=== PATIENT | female | born 1940 | race Caucasian/White ===

== ENCOUNTER 2017-05-10 18:51 | Inpatient (IN) ==
[2017-05-10 19:57] LABS: Basophils # 0.1 K/mcL (0.0-0.2); Basophils % 1.1 %; Eosinophils # 0.2 K/mcL (0.0-0.6); Hematocrit 35.4 % (35.3-44.9); Hemoglobin 11.4 g/dL (11.5-15.4); Immature Granulocytes % 0.5 % (0-4); Lymphocytes # 0.8 K/mcL (0.6-4.6); Lymphocytes % 9.7 %; Mean Corpuscular HGB Conc 32.2 g/dL (31.6-35.5); Mean Corpuscular Hemoglobin 28.9 pg (28.0-33.3); Mean Corpuscular Volume 89.6 fL (83.0-100.0); Monocytes # 0.8 K/mcL (0.0-1.3); Neutrophils # 6.5 K/mcL (1.6-8.9); Platelet Count 262 K/mcL (140-400); Red Blood Count 3.95 M/mcL (3.82-4.97); Red Cell Distribution Width 13.6 % (11.5-14.5); Segmented Neutrophils % 77.7 %
--- NOTE | 2017-05-10 19:57 | Emergency Department Note ---
Disposition Clinical Impression: Urinary tract infection Qualifiers: Urinary tract infection type: site unspecified Hematuria presence: with hematuria Qualified Code(s): N39.0 - Urinary tract infection, site not specified Disposition: Admitted As Inpatient Condition: Good Time of Disposition: 22:09 General Adult HPI - General Chief complaint: ED Urogenital-Female Stated complaint: UTI Time Seen by Provider: 05/10/17 19:05 Source: patient Limitations: no limitations Nursing Notes Reviewed: Yes Vital Signs Reviewed: Yes - History of Present Illness HPI Narrative: Patient is a 76-year-old female who presents to [facility] ED with a chief complaint of lower abdominal pain, urinary tract infection, and cough 2 days. Patient states that she has had frequent urinary tract infections in the past and was seen by her primary care physician on April 27. Patient had been placed on ciprofloxacin and then was called a few days later to tell her she needed to take a different antibiotic through the IV. Patient was on vacation in [place] at the time and could not do so until she came back. Patient recently came back today and states her symptoms have been worsening. She has had pain going into her lower back as well as some nausea without vomiting. Subjective fevers and chills. She has also had a cough and runny nose for the last 2 days. States she is feeling and chest tightness. Onset (ago): day(s) Location: chest, abdomen Radiation: non-radiation Pain Severity: moderate Pain Scale: 5 Quality: aching Improves with: nothing Worsens with: nothing Associated symptoms: Reports: chest pain, cough, shortness of breath, weakness Treatments Prior to Arrival: none - Related Data Home Medications Medication Instructions Recorded Confirmed Aspirin Enteric Coated [Aspirin EC] 81 mg PO DAILY 05/10/17 05/10/17 Diclofenac Sodium [Voltaren] 2 gm TP BID 05/10/17 05/10/17 Levothyroxine [Synthroid] 125 mcg PO 0630 05/10/17 05/10/17 Metoprolol Succinate 25 mg PO DAILY 05/10/17 05/10/17 Metoprolol Succinate 100 mg PO DAILY 05/10/17 05/10/17 Pimecrolimus [Elidel] 1 appl TP BID PRN 05/10/17 05/10/17 Trimethoprim 100 mg PO DAILY 05/10/17 05/10/17 Ursodiol 1,800 mg PO HS 05/10/17 05/10/17 Allergies Allergy/AdvReac Type Severity Reaction Status Date / Time azithromycin Allergy See Verified 05/10/17 20:01 [From Zithromax Z-Ray] Comments cefdinir Allergy See Verified 05/10/17 20:01 Comments metronidazole [From Flagyl] Allergy See Verified 05/10/17 20:01 Comments nitrofurantoin Allergy See Verified 05/10/17 20:01 [From Macrobid] Comments Penicillins Allergy See Verified 05/10/17 20:01 Comments sulfamethoxazole Allergy See Verified 05/10/17 20:01 [From Bactrim] Comments All systems ED: reviewed and negative except as stated. Past Medical History - Past Medical History Attestation: Yes The following information was validated with the patient. Source: patient Medical history: Reports: fibromyalgia, GERD, hypertension, renal disease, other Psychiatric history: Reports: no psych history - Social History Smoking Status: Never smoker Smokeless Tobacco Status: No Alcohol use: Reports: none Drug use: Reports: none Physical Exam - General Limitations: no limitations General appearance: alert - Head Head exam: atraumatic, normocephalic, normal inspection - Eye Eye exam: Present: normal appearance, EOMI - ENT ENT exam: normal exam, normal oropharynx, mucous membranes moist - Neck Neck exam: Present: normal inspection, full ROM, trachea midline - Chest Chest inspection: Present: normal inspection, symmetric chest wall rise - Respiratory Respiratory exam: Present: normal lung sounds bilaterally - Cardiovascular Cardiovascular exam: Present: normal rhythm, tachycardia - Abdominal Exam Abdominal exam: Present: soft, Non-Tender. Absent: tenderness, distention, guarding, rebound, rigidity - Extremities Exam Extremities exam: Present: normal inspection, full ROM. Absent: tenderness, pedal edema - Back Exam Back exam: Present: normal inspection, full ROM. Absent: tenderness - Neurological Exam Neurological exam: Present: alert - Psychiatric Psychiatric exam: Present: normal affect, normal mood - Skin Skin exam: Present: warm, dry, intact, normal color Course Course Narrative: Patient seen and examined. Recently diagnosed with urinary tract infection that is resistant to multiple medications as well as patient having multiple allergies. I discussed pharmacotherapy with the pharmacy. We will place her on IV gentamicin. Patient also been feeling more short of breath and chest tightness over the last 2 days. Denies any sick contacts. Since she has been on multiple recent long bus trips, will rule out PE. She is saturating about 94 % on room air. Abdominal labs as well as CTA of the chest, CT abd/ pelvis with IV contrast ordered. - Reevaluation(s) Reevaluation #1: CTA of the chest shows multiple swollen lymph nodes in the chest concerning for lymphoproliferative disease and less likely early lymphoma. No signs of PE or pneumonia. Patient's urine analysis does show a urinary tract infection. I discussed with hospitalist Dr. Torres who has accepted patient for admission. Time: 23:09 Vital Signs Temperature 98.8 F 05/10/17 18:54 Pulse Rate 114 05/10/17 18:54 Respiratory Rate 14 05/10/17 18:54 Blood Pressure 139/76 05/10/17 18:54 O2 Sat by Pulse Oximetry 95 05/10/17 18:54 Temperature 98.8 F 05/10/17 18:54 Pulse Rate 104 05/10/17 21:38 Respiratory Rate 18 05/10/17 22:46 Blood Pressure 122/68 05/10/17 22:46 O2 Sat by Pulse Oximetry 97 05/10/17 21:56 Oxygen Delivery Oxygen Delivery Nasal Cannula Medical Decision Making - Medical Records Medical records reviewed: Yes I reviewed the patient's medical records. - Lab Data Lab results reviewed: Yes I reviewed the patient's lab results. Result diagrams: 05/10/17 19:50 05/10/17 19:50 Lab Results 05/10/17 05/10/17 05/10/17 Range/Units 19:43 19:50 19:50 WBC 8.3 (4.3-11.1) K/mcL RBC 3.95 (3.82-4.97) M/mcL Hgb 11.4 L (11.5-15.4) g/dL Hct 35.4 (35.3-44.9) % MCV 89.6 (83.0-100.0) fL MCH 28.9 (28.0-33.3) pg MCHC 32.2 (31.6-35.5) g/dL RDW 13.6 (11.5-14.5) % Plt Count 262 (140-400) K/mcL MPV 9.0 L (9.4-12.4) fL Immature Gran % 0.5 (0-4) % Seg Neutrophils % 77.7 % Lymphocytes % 9.7 % Monocytes % 9.0 % Eosinophils % 2.0 % Basophils % 1.1 % Neutrophils # 6.5 (1.6-8.9) K/mcL Lymphocytes # 0.8 (0.6-4.6) K/mcL Monocytes # 0.8 (0.0-1.3) K/mcL Eosinophils # 0.2 (0.0-0.6) K/mcL Basophils # 0.1 (0.0-0.2) K/mcL Sodium 136 (136-145) mEq/L Potassium 3.8 (3.5-4.5) mEq/L Chloride 106 (98-109) mEq/L Carbon Dioxide 22 (19-29) mEq/L BUN 18 (7-20) mg/dL Creatinine 0.87 (0.57-1.11) mg/dL Est GFR ( Amer) > 60 (> 60) Est GFR (Non-Af Amer) > 60 (> 60) BUN/Creatinine Ratio 21 (6-26) Glucose 121 H (70-99) mg/dL Calculated Osmolality 285 (280-300) Lactic Acid (0.5-2.2) mmol/L Calcium 9.2 (8.6-10.8) mg/dL Troponin I (0-0.03) ng/mL B-Natriuretic Peptide (0-100) pg/mL Urine Color Yellow (Yellow) Urine Clarity Cloudy A (Clear) Urine pH 6.0 (5.0-8.0) pH Units Ur Specific [place] 1.018 (1.010-1.025) Urine Protein Negative (Neg-Trace) mg/dL Urine Glucose (UA) Normal (Normal) mg/dL Urine Ketones Negative (Negative) mg/dL Urine Blood Trace H (Negative) Urine Nitrite Positive A (Negative) Urine Bilirubin Negative (Negative) Urine Urobilinogen Normal (Normal) mg/dL Ur Leukocyte Esterase Small H (Negative) Urine Microscopic RBC 0-3 (0-3) per hpf Urine Microscopic WBC 5-15 H (0-3) per hpf Ur Squamous Epith Cells Moderate H (None-Few) per lpf Urine Bacteria Many H (None-Few) per hpf Hyaline Casts None Seen (None-Few) per lpf Ur Culture Indicated? YES A (NO) 05/10/17 05/10/1705/10/17 Range/Units 19:50 19:50 19:50 WBC (4.3-11.1) K/mcL RBC (3.82-4.97) M/mcL Hgb (11.5-15.4) g/dL Hct (35.3-44.9) % MCV (83.0-100.0) fL MCH (28.0-33.3) pg MCHC (31.6-35.5) g/dL RDW (11.5-14.5) % Plt Count (140-400) K/mcL MPV (9.4-12.4) fL Immature Gran % (0-4) % Seg Neutrophils % % Lymphocytes % % Monocytes % % Eosinophils % % Basophils % % Neutrophils # (1.6-8.9) K/mcL Lymphocytes # (0.6-4.6) K/mcL Monocytes # (0.0-1.3) K/mcL Eosinophils # (0.0-0.6) K/mcL Basophils # (0.0-0.2) K/mcL Sodium (136-145) mEq/L Potassium (3.5-4.5) mEq/L Chloride (98-109) mEq/L Carbon Dioxide (19-29) mEq/L BUN (7-20) mg/dL Creatinine (0.57-1.11) mg/dL Est GFR ( Amer) (> 60) Est GFR (Non-Af Amer) (> 60) BUN/Creatinine Ratio (6-26) Glucose (70-99) mg/dL Calculated Osmolality (280-300) Lactic Acid 0.9 (0.5-2.2) mmol/L Calcium (8.6-10.8) mg/dL Troponin I 0.00 (0-0.03) ng/mL B-Natriuretic Peptide 59 (0-100) pg/mL Urine Color (Yellow) Urine Clarity (Clear) Urine pH (5.0-8.0) pH Units Ur Specific [place] (1.010-1.025) Urine Protein (Neg-Trace) mg/dL Urine Glucose (UA) (Normal) mg/dL Urine Ketones (Negative) mg/dL Urine Blood (Negative) Urine Nitrite (Negative) Urine Bilirubin (Negative) Urine Urobilinogen (Normal) mg/dL Ur Leukocyte Esterase (Negative) Urine Microscopic RBC (0-3) per hpf Urine Microscopic WBC (0-3) per hpf Ur Squamous Epith Cells (None-Few) per lpf Urine Bacteria (None-Few) per hpf Hyaline Casts (None-Few) per lpf Ur Culture Indicated? (NO) - Radiology Data Radiology results reviewed: Yes I reviewed the patient's radiology results. Abdomen/Pelvis CT 05/10/17 19:27 IMPRESSION: No evidence of pulmonary embolism. Adenopathy with multiple mildly enlarged and multiple small lymph nodes, mediastinal, epicardial, epiphrenic and epigastric. Considerations include a lymphoproliferative disorder and less likely early lymphoma. Very subtle patchy ground-glass areas of opacity of uncertain etiology. Pneumonia is considered somewhat unlikely. Moderate colonic diverticulosis. Small hiatal hernia. RECOMMENDATIONS: Consider PET-CT scan depending on clinical circumstances. D/ / Carlos Alberto Elkins MD / Carlos Alberto Elkins MD Interpreting Provider: Carlos Alberto Elkins MD Chest CTA 05/10/17 19:27 IMPRESSION: No evidence of pulmonary embolism. Adenopathy with multiple mildly enlarged and multiple small lymph nodes, mediastinal, epicardial, epiphrenic and epigastric. Considerations include a lymphoproliferative disorder and less likely early lymphoma. Very subtle patchy ground-glass areas of opacity of uncertain etiology. Pneumonia is considered somewhat unlikely. Moderate colonic diverticulosis. Small hiatal hernia. RECOMMENDATIONS: Consider PET-CT scan depending on clinical circumstances. D/ / Carlos Alberto Elkins MD / Carlos Alberto Elkins MD Interpreting Provider: Carlos Alberto Elkins MD - EKG Data EKG #1 EKG attestation: Yes I reviewed and interpreted this EKG. EKG results narrative: EKG done at 1947 shows sinus tachycardia with a rate of [address] elevation. Minimal ST depression in leads V4 through V6.. Normal axis.
[2017-05-10 19:59] LABS: Bilirubin,Urine Negative (Negative); Blood,Urine Trace (Negative); Clarity,Urine Cloudy (Clear); Color,Urine Yellow (Yellow); Glucose,Urine (UA) Normal (Normal); Ketones,Urine Negative (Negative); Leukocyte Esterase,Urine Small (Negative); Nitrite,Urine Positive (Negative); Protein,Urine Negative (Neg-Trace); Specific Gravity,Urine 1.018 (1.010-1.025); Urobilinogen,Urine Normal (Normal)
[2017-05-10 20:02] LABS: Bacteria,Urine Many per hpf (None-Few); Hyaline Casts,Urine None Seen per lpf (None-Few); RBC,Urine 0-3 per hpf (0-3); Squamous Epithelial Cell,Urine Moderate per lpf (None-Few)
[2017-05-10 20:09] LABS: BUN/Creatinine Ratio 21 (6-26); Blood Urea Nitrogen 18 mg/dL (7-20); Calcium 9.2 mg/dL (8.6-10.8); Carbon Dioxide 22 mEq/L (19-29); Chloride 106 mEq/L (98-109); Glucose 121 mg/dL (70-99); Osmolality,Calculated 285 (280-300); Potassium 3.8 mEq/L (3.5-4.5); Sodium 136 mEq/L (136-145); eGFR For African Americans > 60 (> 60); eGFR For Non-African Americans > 60 (> 60)
[2017-05-10] MEDS ORDERED: Gentamicin 80 MG in 0.9 % Sodium Chloride 100 ML IVPB SCH (21:00)
[2017-05-10] MEDS ORDERED: Ipratropium/Albuterol Neb 3 ML IH ONE (21:05)
--- NOTE | 2017-05-10 21:16 | Emergency Department Note ---
START Narrative - START START: I examined this patient and my medical decision-making was reviewed with the Resident Physician. I agree with the documented findings, disposition and treatment plan as described except to the extent set forth below. 76 year old female with HX of UTIs and typically is allergic to most PO medications taht treat it was in [place] today and got a call from her doctor stating that she has a UTI and needs a IV ABX due to allergies to PO medications. PAtient also states that she has been experiencing increased shrotness of breath and cough as well and was most recently on a long bus ride from [place], although states that she has been able to move around and get of the bus every two hours. Maikel will be admitted to medicine with IV genatmicin and we have ruled out PE and other intraabdonimnla pathologies such as pyelo with ABCt/CTA chest.
[2017-05-10] MEDS: Gentamicin 100 MG in 0.9 % Sodium Chloride 100 ML IVPB SCH (21:46)
[2017-05-11] MEDS ORDERED: *HR* Promethazine 25 MG/ML VIAL IVP PRN (01:18)
[2017-05-11] MEDS ORDERED: Ondansetron 4 MG/2 ML VIAL IVP PRN (01:18)
[2017-05-11] MEDS ORDERED: MOM Conc 10 ML UD.LIQ PO PRN (01:18)
[2017-05-11] MEDS ORDERED: [UNRECOGNIZED DRUG - OTHER] TP PRN (01:21)
[2017-05-11] MEDS ORDERED: Ibuprofen 600 MG TABLET PO ONE (01:23)
--- NOTE | 2017-05-11 01:37 | Internal Med History&Physical ---
Date of Encounter: 05/11/17 Time of Encounter: 00:10 Assessment and Plan (1) Urinary tract infection Current visit: Yes Status: Acute Will admit the pt into Med Surg Reviewed her Urine cx results from 04/27/17 - Fluroquinolone resistant , ESBL Negative E. Coli She has severe allergies to PCN / Chephalosporins - gets severe hives / blisters , so unable to use PCN/Carbapenems/ Chephalosporin ER attending started her on Gentamycin ..which will continue for now Pharmacy consulted for dosing May need to do desensitization for PCN / Carabapenem therapy.. Will consult ID in AM Blood cx drawn in Er Qualifiers: Urinary tract infection type: site unspecified Hematuria presence: without hematuria Qualified Code(s): N39.0 - Urinary tract infection, site not specified (2) Acute bronchiolitis Current visit: Yes Status: Acute She does have purulent bronchitis -- mostly bacterial cont empirical abx Gentamycin cont supportive and symptomatic care Qualifiers: Qualified Code(s): J21.9 - Acute bronchiolitis, unspecified (3) Reactive airway disease Current visit: Yes Status: Acute started her on low dose IV steroids Duoneb Qualifiers: Qualified Code(s): J45.909 - Unspecified asthma, uncomplicated (4) Lymphadenopathy Current visit: Yes Status: Acute Reviewed CT of Abd and Chest results Not sure at this stage wether it is early lymphoma vs inflammatory reaction to infection will check ESR and CRP in AM started her on Steroids Will consult Heme Onc in AM (5) Hypothyroid Current visit: Yes Status: Chronic resumed home meds Qualifiers: Qualified Code(s): E03.9 - Hypothyroidism, unspecified (6) Hypertension, essential Current visit: Yes Status: Acute stable resumed home meds (7) Primary biliary cirrhosis Current visit: Yes Status: Chronic stable resumed home med (8) DVT prophylaxis Current visit: Yes Status: Acute on Lovenox SQ Internal Medicine - H&P: HPI Chief complaint: UTI Admitted From: Emergency Dept Plans for Post Hospital Care: Home History of present illness: Ms. Roberts is a 76 year old female with known PMH of HTN, HLD, Hypothyroidism , Primary Biliary cirrhosis , with recurrent UTI history pt was recently diagnosed with UTI on 04/27/17 which was growing E. Coli, and pt was placed on Ciprofloxacin. Apprently her E. Coli was fluroquinolone resistant and she is allergic to lot of abx. So her PCP called her to get admitted in the hospital for IV abx and further care. Pt went to [place] a couple of days ago, since then she has been having cough with yellowsih expectoration and mild ZAMORA / SOB. She denied any CP. No fever / chills. However she does c/o dysuria and Rt flank pain. She had further work up done in the ER, her CT of abd / pelvis showed mediastinal, precardial, and paraphrenic lymphadenopathy., no pyelonephritis. Past Med Surg Social Fam HX - Past Medical History Medical history: fibromyalgia, GERD, hypertension, renal disease, other Psychiatric history: no psych history - Past Surgical History Surgical History: cholecystectomy, hysterectomy - Social History Smoking Status: Never smoker Smokeless Tobacco Status: No Alcohol use: none Drug use: none - Family History Father Name: Lars Age: 51 Living Status: Hx Family Cancer: Yes Internal Medicine - H&P: Meds Aspirin Enteric Coated [Aspirin EC] 81 mg PO DAILY 05/10/17 [History] Diclofenac Sodium [Voltaren] 2 gm TP BID 05/10/17 [History] Levothyroxine [Synthroid] 125 mcg PO 0630 05/10/17 [History] Metoprolol Succinate 25 mg PO DAILY 05/10/17 [History] Metoprolol Succinate 100 mg PO DAILY 05/10/17 [History] Pimecrolimus [Elidel] 1 appl TP BID PRN 05/10/17 [History] Trimethoprim 100 mg PO DAILY 05/10/17 [History] Ursodiol 1,800 mg PO HS 05/10/17 [History] 3 Allergy/AdvReac Type Severity Reaction Status Date / Time azithromycin Allergy See Verified 05/10/17 20:01 [From Zithromax Z-Ray] Comments cefdinir Allergy See Verified 05/10/17 20:01 Comments metronidazole [From Flagyl] Allergy See Verified 05/10/17 20:01 Comments nitrofurantoin Allergy See Verified 05/10/17 20:01 [From Macrobid] Comments Penicillins Allergy See Verified 05/10/17 20:01 Comments sulfamethoxazole Allergy See Verified 05/10/17 20:01 [From Bactrim] Comments All Systems PM: A 10-system review of systems was performed and is negative for pertinent findings except as documented above in the HPI. Review of systems: All the systems are reviewed everything is benign except the systems and symptoms I mentioned in the history of present illness - Constitutional Vitals: Temp Pulse Resp BP Pulse Ox 99.3 F 106 14 145/81 95 05/11/17 01:22 05/11/17 01:22 05/11/17 01:22 05/11/17 01:22 05/11/17 01:22 General appearance: Present: A&O X 3, no acute distress, answers questions appropriately - Head Head exam: Present: atraumatic, normal inspection - Neck Neck exam general surgery: Present: supple - Respiratory Respiratory exam: Present: decreased breath sounds, wheezes (moderate). Absent : rales, respiratory distress, rhonchi - Cardiovascular Cardiovascular exam: Present: RRR, +S1, +S2. Absent: systolic murmur - GI/Abdominal GI/Abdominal exam: Present: normal bowel sounds, soft. Absent: rebound, rigid, tenderness - Extremities Exam Extremities exam: Absent: calf tenderness, pedal edema, tenderness - Neurological Exam Neurological exam: Present: alert, oriented X3 - Psychiatric Psychiatric exam: Present: normal affect, normal mood - Skin Skin exam: Absent: rash Internal Med - H&P Results - Labs CBC & Chem 7: 05/10/17 19:50 05/10/17 19:50
[2017-05-11] MEDS: Benzonatate 100 MG CAPSULE PO PRN ×2 (05:32→20:12)
[2017-05-11] MEDS: *HR* Enoxaparin 40 MG/0.4 ML SYRINGE SQ SCH (05:33)
[2017-05-11 05:52] LABS: Basophils # 0.1 K/mcL (0.0-0.2); Basophils % 1.2 %; Eosinophils # 0.1 K/mcL (0.0-0.6); Eosinophils % 1.4 %; Hematocrit 32.3 % (35.3-44.9); Hemoglobin 10.2 g/dL (11.5-15.4); Immature Granulocytes % 0.6 % (0-4); Lymphocytes # 0.8 K/mcL (0.6-4.6); Lymphocytes % 14.6 %; Mean Corpuscular HGB Conc 31.6 g/dL (31.6-35.5); Mean Corpuscular Hemoglobin 28.3 pg (28.0-33.3); Mean Corpuscular Volume 89.7 fL (83.0-100.0); Mean Platelet Volume 9.6 fL (9.4-12.4); Monocytes # 0.7 K/mcL (0.0-1.3); Monocytes % 14.1 %; Neutrophils # 3.5 K/mcL (1.6-8.9); Platelet Count 218 K/mcL (140-400); Red Cell Distribution Width 13.6 % (11.5-14.5); Segmented Neutrophils % 68.1 %
[2017-05-11 06:04] LABS: BUN/Creatinine Ratio 17 (6-26); Blood Urea Nitrogen 13 mg/dL (7-20); C-Reactive Protein 15 mg/L (Less than 5); Calcium 8.7 mg/dL (8.6-10.8); Carbon Dioxide 22 mEq/L (19-29); Chloride 106 mEq/L (98-109); Glucose 118 mg/dL (70-99); Osmolality,Calculated 285 (280-300); Potassium 3.4 mEq/L (3.5-4.5); Sodium 137 mEq/L (136-145); eGFR For African Americans > 60 (> 60); eGFR For Non-African Americans > 60 (> 60)
[2017-05-11] MEDS: Gentamicin 100 MG in 0.9 % Sodium Chloride 100 ML IVPB SCH (06:23)
[2017-05-11] MEDS: MethylPREDNISolone 40 MG/ML VIAL IVP SCH ×2 (07:17→08:52)
[2017-05-11] MEDS: Aspirin Enteric Coated 81 MG Tablet PO SCH (08:52)
[2017-05-11] MEDS: Metoprolol XL (24 HR) Succ 25 MG TAB.ER.24H PO SCH (08:52)
[2017-05-11] MEDS: Metoprolol XL (24 HR) Succ 50 MG TAB.ER.24H PO SCH (08:52)
[2017-05-11] MEDS ORDERED: (Diclofenac Sodium [Voltaren] 2 GM) TP SCH (09:00)
[2017-05-11] MEDS ORDERED: (Trimethoprim [Trimethoprim] 100 MG) PO SCH (09:00)
[2017-05-11] MEDS ORDERED: Aminoglycoside Consult 1 EACH MC ONE (09:11)
--- NOTE | 2017-05-11 10:04 | Event Note ---
<Lefty Ramirez - Last Filed: 05/11/17 15:54> Date of Encounter: 05/11/17 I independently saw and examined this patient on 05/11/2017, I have reviewed his chart as well. Diagnoses and management plan was discussed with the patient, and the resident physician. 76 F with PMH of Biliary Cirrhosis, HTN, Hypothyroidism, Recurrent UTIS She was admitted to the hospital for management of a prior E.coli UTI that was resistant to the oral medication she was on, but sensitive to penicillin/ carbapenems and cephalosporins. Patient endorsed prior hx of TEN to penicillin, but has taken po Keflex several times without any problems. She has received IV contrast for CTA and also is on gentamicin. She denies any complains at this time Physical exam: VSS, Obese, not in distress. Chest is CTAB, no added sounds, Abdomen is soft and not tender, no pedal edema Labs and Imaging reviewed: Abdomen/Pelvic lymphadenopathy, otherwise unremarkable A/P #Asymptomatic Recurrent E.Coli UTI. D/C gentamicin. Give cephalosporin, 1g Rocephin and monitor closely. Follow urine culture sent 05/10/17 #Adenopathy: Consult Heme/Onc Other chronic medical conditions stable, patients home meds can be resumed, rest of details as in the resident physicians documentation <Shannon Benz - Last Filed: 05/11/17 19:28> Date of Encounter: 05/11/17 Time of Encounter: 09:50 Patient is laying in bed comfortably. She reports that she still has some shortness of breath and cough with yellow sputum she denies to dysuria, bladder fullness, increasing urinary frequency, fever, chills she is not the complaints at this time Gen.: Vitals noted. No acute distress. AAOx3 HEENT: oropharynx clear, Normocephalic, atraumatic Neck: Supple. cervical adenopathy. Cardiac: RRR, no murmur, +S1/S2 Pulmonary: bilateral diffuse wheezes and rhonchi, equal chest expansion Abdomen: soft, nontender, Bowel sounds noted, no guarding MSK: ROM intact, no joint swelling noted Extremities: BLE edema, tender calf, no cyanosis or clubbing Neuro: A&Ox3, moves all extremities, Psych: Appropriate mood and behavior A/P Urinary tract infection Patient has a history of recurrent urinary tract infections it was resistant to the oral medication that she was on She has allergies to PCN / Chephalosporins. Patient reported history of TEN to penicillin, but is taking Keflex several times without problems. She denies dysuria, urinary frequency, bladder fullness, fever, chills -discontinued gentamicin -started Rocephin- will monitor closely -diphenhydramine as needed -urine culture pending Lymphadenopathy CTA chest showed adenopathy with multiple mildly enlarged and multiple small lymph nodes. Considerations lymphoproliferative disorder and less likely early lymphoma. ESR 55, CRP 15 -Heme/onc consulted Acute bronchiolitis patient admits to cough with yellow sputum -Duonebs prn -continue supportive care primary biliary cirrhosis -stable -continue her medications Hypertension stable -continue her medications and metoprolol Hypothyroidism -continue her medications of levothyroxine DVT prophylaxis Lovenox SQ
--- NOTE | 2017-05-11 12:23 | Electrocardiograph Report ---
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
--- NOTE | 2017-05-11 15:23 | Oncology Inp Consult Note ---
<Dennis Erazo Jr - Last Filed: 05/11/17 15:50> Date of Encounter: 05/11/17 Time of Encounter: 14:30 Assessment and Plan (1) Lymphadenopathy Status: Acute Assessment and plan: This is a pleasant 76 year old female with no personal cancer history. Her father in the 1950s of lung cancer in the face of tobacco use. There is no other maternal or paternal relatives with a cancer diagnosis to her knowledge. The patient came to hospital due to cough and chest pain. She is being treated for acute bronchiolitis and UTI. Patient had CTA scan of the chest and CT of the abdomen and pelvis that showed lymphadenopathy. There was adenopathy with multiple mildly enlarged and multiple small lymph nodes, of the mediastinal, epicardial, epiphrenic and epigastric regions. Differential diagnosis could be inflammatory process due to infectious processes and smaller size of nodes versus a malignancy. I spoke to the patient about etiology of inflammation versus possible malignant disorders. Plan today is to order peripheral blood flow to [facility] for analysis that will take a few days. We would see her as an outpatient with Dr Gloria Crespo 2 weeks after discharge for probable PET scan for further evaluation. I left my business card, as well as a copy of the scan results and printed pictures of the lymph nodes of concern. I explained these in detail with the patient. Patient alone at time of encounter, but family expected to return, Dr Crespo will assess patient late afternoon, and speak to family at that time. (2) Anemia Status: Acute Assessment and plan: Patient with history of HTN, cirrhosis, and renal insufficiency. Hgb 10.2. We will order Vit B12, folate, ironn panel, ferritin, protein electrophoresis and serum light chains today in order to determine cause of anemia. It may be related to her possible lymphoproliferative disorder, or other chronic comorbidities, that we will evaluate further as an outpatient. Qualifiers: Anemia type: unspecified type Qualified Code(s): D64.9 - Anemia, unspecified - Data of Consult Patient: new to practice Consult date: 05/11/17 Requesting Physician: Lefty Ramirez MD Primary Care Provider: Florinda Dickens - Consult Narrative Reason for consult: new lymphadenopathy History of present illness: Ms. Roberts is a 76 year old female with known PMH of HTN, HLD, Hypothyroidism , Primary Biliary cirrhosis , with recurrent UTI history. She was recently diagnosed with UTI on 04/27/17 which was growing E. Coli, and pt was placed on Ciprofloxacin. Apparently her E. Coli was fluroquinolone resistant and she is allergic to multiple antibiotics. The patient travelled recently to [place] a few days prior to admission. Since that time, she has been having cough with expectoration and mild shortness of breath. She had a burning chest pain with cough, but denied fever and chills. During admission, she had further work up with CT of abdomen / pelvis ,and, CTA of chest that showed mediastinal, precardial, and paraphrenic lymphadenopathy. The patient has no personal history of cancer. Her father in the 1950s of lung cancer due to tobacco use and World War I exposures. She has no family history of leukemias or lymphomas. Patient is a non smoker. No alcohol abuse history. Medical oncology consulted for concern of lymphoproliferative disorder/ lymphoma. Patient anemic with Hgb of 10.2. Past Med Surg Social Fam HX - Past Medical History Medical history: fibromyalgia, GERD, hypertension, renal disease, other Psychiatric history: no psych history - Past Surgical History Surgical History: cholecystectomy, hysterectomy - Social History Smoking Status: Never smoker Smokeless Tobacco Status: No Alcohol use: none Drug use: none - Family History Father Name: Lars Age: 51 Living Status: Hx Family Cancer: Yes Medications and Allergies Aspirin Enteric Coated [Aspirin EC] 81 mg PO DAILY 05/10/17 [History] Diclofenac Sodium [Voltaren] 2 gm TP BID 05/10/17 [History] Levothyroxine [Synthroid] 125 mcg PO 0630 05/10/17 [History] Metoprolol Succinate 25 mg PO DAILY 05/10/17 [History] Metoprolol Succinate 100 mg PO DAILY 05/10/17 [History] Pimecrolimus [Elidel] 1 appl TP BID PRN 05/10/17 [History] Trimethoprim 100 mg PO DAILY 05/10/17 [History] Ursodiol 1,800 mg PO HS 05/10/17 [History] 3 Allergy/AdvReac Type Severity Reaction Status Date / Time azithromycin Allergy See Verified 05/10/17 20:01 [From Zithromax Z-Ray] Comments cefdinir Allergy See Verified 05/10/17 20:01 Comments metronidazole [From Flagyl] Allergy See Verified 05/10/17 20:01 Comments nitrofurantoin Allergy See Verified 05/10/17 20:01 [From Macrobid] Comments Penicillins Allergy See Verified 05/10/17 20:01 Comments sulfamethoxazole Allergy See Verified 05/10/17 20:01 [From Bactrim] Comments Constitutional: Present: fatigue Respiratory: Present: cough, dyspnea, pain on inspiration, chest congestion Oncology - Exam - Constitutional Vitals: Temp Pulse Resp BP Pulse Ox 97.8 F 78 14 124/77 92 05/11/17 12:20 05/11/17 12:20 05/11/17 12:20 05/11/17 12:20 05/11/17 12:20 - Head Head exam: Present: atraumatic, normal inspection - Eye Eye exam: Present: normal appearance, PERRL - ENT ENT exam: Present: mucous membranes moist - Neck Neck exam: Present: full ROM, normal inspection - Respiratory Respiratory exam: Present: chest wall tenderness, rhonchi - Cardiovascular Cardiovascular exam: Present: RRR, +S1, +S2 - GI/Abdominal GI/Abdominal exam: Present: normal bowel sounds - Extremities Exam Extremities exam: Present: full ROM, normal inspection - Neurological Exam Neurological exam: Present: alert, oriented X3, no focal deficits - Psychiatric Psychiatric exam: Present: normal affect, normal mood - Skin Skin exam: Present: dry, intact, warm Oncology - Results Labs: Short CBC 05/11/17 Range/Units 05:21 WBC 5.1 (4.3-11.1) K/mcL Hgb 10.2 L (11.5-15.4) g/dL Hct 32.3 L (35.3-44.9) % Plt Count 218 (140-400) K/mcL Neutrophils # 3.5 (1.6-8.9) K/mcL BMP 05/11/17 05:21 Sodium 137 Potassium 3.4 L Chloride 106 Carbon Dioxide 22 BUN 13 Creatinine 0.77 Glucose 118 H Calcium 8.7 Consult Discharge Plan - Plan Referrals: Florinda Dickens MD [Primary Care Provider] - <Gloria Crespo - Last Filed: 05/12/17 08:32> Date of Encounter: 05/12/17 - Data of Consult Requesting Physician: Lefty Ramirez MD Primary Care Provider: Florinda Dickens - Consult Narrative History of present illness: Ms. Roberts is a 76 year old female Oncology - Exam - Constitutional Vitals: Temp Pulse Resp BP Pulse Ox 98.1 F 77 16 111/72 95 05/12/17 05:03 05/12/17 05:03 05/12/17 07:50 05/12/17 05:03 05/12/17 07:50 Oncology - Results Labs: Short CBC 05/12/17 Range/Units 04:49 WBC 5.0 (4.3-11.1) K/mcL Hgb 10.4 L (11.5-15.4) g/dL Hct 32.5 L (35.3-44.9) % Plt Count 230 (140-400) K/mcL Neutrophils # 3.9 (1.6-8.9) K/mcL BMP 05/12/17 04:49 Sodium 140 Potassium 3.9 Chloride 110 H Carbon Dioxide 23 BUN 13 Creatinine 0.78 Glucose 133 H Calcium 8.8 - Attending Attestation 1. Escherichia coli UTI. A 04/27/2017 showed the strain is sensitive to ceftriaxone IV and gentamicin IV. She currently on ceftriaxone and gentamicin stopped The strain was resistant to Levaquin She failed outpatient treatment. Urine culture 05/10/2017 again demonstrated gram-negative rods. Admission mainly for IV antibiotic 2. Incidental finding retroperitoneal adenopathy by CT abdomen and pelvis without contrast 05/10/2017. Largest 1 cm gastrohepatic lymph node and breast are smaller. The last CAT scan before that was in 2012 CT angiogram chest 05/10/2017 also showed lymph nodes in the mediastinum was prominent one sore in the AP window area along the descending aortic border largest about 1.3 cm. So right paratracheal lymph node about 1 cm. Most likely these could be reactive. No peripheral blood lymphocytosis with lymphocyte count 1999 address of CBC unremarkable 3. Anemia hemoglobin 10.4 I am saturation 5% ferritin 165. B12 folate normal in 05/11/2017 She had a colonoscopy last year (2015) apparently 2 polyps removed that were benign
[2017-05-11 15:29] LABS: % Iron Saturation 5 % (15-50); Iron 17 mcg/dL (50-170); Transferrin 228 mg/dL (180-382)
[2017-05-11 15:55] LABS: Folate 7.4 ng/mL (7.0-31.4)
[2017-05-11] MEDS ORDERED: Ibuprofen 400 MG TABLET PO ONE (20:01)
[2017-05-12 04:57] LABS: Basophils % 0.2 %; Hematocrit 32.5 % (35.3-44.9); Hemoglobin 10.4 g/dL (11.5-15.4); Immature Granulocytes % 0.6 % (0-4); Immature Platelets 1.9 % (1.1-6.1); Lymphocytes # 0.5 K/mcL (0.6-4.6); Lymphocytes % 10.5 %; Mean Corpuscular Volume 90.5 fL (83.0-100.0); Mean Platelet Volume 9.3 fL (9.4-12.4); Monocytes # 0.6 K/mcL (0.0-1.3); Monocytes % 12.1 %; Neutrophils # 3.9 K/mcL (1.6-8.9); Platelet Count 230 K/mcL (140-400); Red Blood Count 3.59 M/mcL (3.82-4.97); Red Cell Distribution Width 13.5 % (11.5-14.5); Segmented Neutrophils % 76.6 %
[2017-05-12 05:15] LABS: BUN/Creatinine Ratio 17 (6-26); Blood Urea Nitrogen 13 mg/dL (7-20); Calcium 8.8 mg/dL (8.6-10.8); Carbon Dioxide 23 mEq/L (19-29); Chloride 110 mEq/L (98-109); Glucose 133 mg/dL (70-99); Magnesium 1.8 mg/dL (1.6-2.6); Osmolality,Calculated 292 (280-300); Potassium 3.9 mEq/L (3.5-4.5); Sodium 140 mEq/L (136-145); eGFR For African Americans > 60 (> 60); eGFR For Non-African Americans > 60 (> 60)
[2017-05-12] MEDS: *HR* Enoxaparin 40 MG/0.4 ML SYRINGE SQ SCH (05:40)
[2017-05-12] MEDS: Benzonatate 100 MG CAPSULE PO PRN ×2 (06:09→21:31)
[2017-05-12] MEDS: Ipratropium/Albuterol Neb 3 ML IH PRN ×2 (07:47→22:26)
[2017-05-12] MEDS: Metoprolol XL (24 HR) Succ 25 MG TAB.ER.24H PO SCH (09:06)
[2017-05-12] MEDS: Metoprolol XL (24 HR) Succ 50 MG TAB.ER.24H PO SCH (09:06)
[2017-05-12] MEDS: Aspirin Enteric Coated 81 MG Tablet PO SCH (09:06)
--- NOTE | 2017-05-12 13:03 | Internal Med Progress Note ---
<Shannon Benz - Last Filed: 05/12/17 12:55> Date of Encounter: 05/12/17 Time of Encounter: 11:45 - Assessment and plan (1) Urinary tract infection Current Visit: Yes Status: Acute Assessment and plan: Patient has a history of recurrent urinary tract infections it was resistant to the oral medication that she was on She has allergies to PCN / Chephalosporins. Patient reported history of TEN to penicillin, but is taking Keflex several times without problems. She denies dysuria, urinary frequency, bladder fullness, fever, chills -started Rocephin Day 2 - will monitor closely -diphenhydramine as needed -urine culture- preliminary GNR, sensitivity pending then oral antibiotics Qualifiers: Urinary tract infection type: site unspecified Hematuria presence: without hematuria Qualified Code(s): N39.0 - Urinary tract infection, site not specified (2) Lymphadenopathy Current Visit: Yes Status: Acute Assessment and plan: This is believed to be an infectious process versus malignancy CTA chest showed adenopathy with multiple mildly enlarged and multiple small lymph nodes. Considerations lymphoproliferative disorder and less likely early lymphoma. ESR 55, CRP 15 corrected ESR is 81 low Iron-17 -oncology will see her outpatient with Dr. Crespo 2 weeks after discharge for probable PET scan for further evaluation -Oncology following -peripheral blood flow ordered by oncology and sent to [facility] for analysis -iron supplementation (3) Acute bronchiolitis Current Visit: Yes Status: Acute Assessment and plan: patient admits to cough -continue Tessilon pearls -Duonebs prn -continue supportive care Qualifiers: Qualified Code(s): J21.9 - Acute bronchiolitis, unspecified (4) Primary biliary cirrhosis Current Visit: Yes Status: Chronic Assessment and plan: -stable -continue her medications, ursodiol (5) Hypertension, essential Current Visit: Yes Status: Acute Assessment and plan: stable -continue her medications and metoprolol (6) Hypothyroid Current Visit: Yes Status: Chronic Assessment and plan: -continue her medications of levothyroxine Qualifiers: Qualified Code(s): E03.9 - Hypothyroidism, unspecified (7) DVT prophylaxis Current Visit: Yes Status: Acute Assessment and plan: Lovenox SQ - Subjective Interval history: Patient is lying in bed comfortably she complains of cough and just took tessilon pearls she also complains of chills and is covered up in blankets she denies dysuria, bladder fullness, hematuria - Constitutional Vitals: Temp Pulse Resp BP Pulse Ox 99.9 F H 97 16 117/68 96 05/12/17 11:07 05/12/17 11:07 05/12/17 11:07 05/12/17 11:07 05/12/17 11:07 General appearance: Present: A&O X 3, no acute distress, answers questions appropriately Exam: Gen.: Vitals noted. No acute distress. AAOx3 HEENT: oropharynx clear, Normocephalic, atraumatic Neck: Supple. No adenopathy. Cardiac: RRR, no murmur, +S1/S2 Pulmonary: + wheezes and rhonchi faces bilaterally, equal chest expansion Abdomen: soft, nontender, Bowel sounds noted, no guarding Back: right CV tenderness Extremities: no BLE edema, +tender calf, no cyanosis or clubbing Psych: Appropriate mood and behavior Internal Medicine: Result - Labs CBC & Chem 7: 05/12/17 04:49 05/12/17 04:49 Labs: Short CBC 05/12/17 Range/Units 04:49 WBC 5.0 (4.3-11.1) K/mcL Hgb 10.4 L (11.5-15.4) g/dL Hct 32.5 L (35.3-44.9) % Plt Count 230 (140-400) K/mcL Neutrophils # 3.9 (1.6-8.9) K/mcL BMP 05/12/17 04:49 Sodium 140 Potassium 3.9 Chloride 110 H Carbon Dioxide 23 BUN 13 Creatinine 0.78 Glucose 133 H Calcium 8.8 Consult Discharge Plan - Plan Referrals: Florinda Dickens MD [Primary Care Provider] - <Lefty Ramirez - Last Filed: 05/12/17 14:03> Date of Encounter: 05/12/17 - Constitutional Vitals: Temp Pulse Resp BP Pulse Ox 99.9 F H 97 16 117/68 96 05/12/17 11:07 05/12/17 11:07 05/12/17 11:07 05/12/17 11:07 05/12/17 11:07 Internal Medicine: Result - Labs CBC & Chem 7: 05/12/17 04:49 05/12/17 04:49 Labs: Short CBC 05/12/17 Range/Units 04:49 WBC 5.0 (4.3-11.1) K/mcL Hgb 10.4 L (11.5-15.4) g/dL Hct 32.5 L (35.3-44.9) % Plt Count 230 (140-400) K/mcL Neutrophils # 3.9 (1.6-8.9) K/mcL BMP 05/12/17 04:49 Sodium 140 Potassium 3.9 Chloride 110 H Carbon Dioxide 23 BUN 13 Creatinine 0.78 Glucose 133 H Calcium 8.8 - Attending Attestation I independently saw and examined this patient on 05/12/2017, I have reviewed his chart as well. Diagnoses and management plan was discussed with the patient, and the resident physician. 76 F with PMH of Biliary Cirrhosis, HTN, Hypothyroidism, Recurrent UTIS She was admitted to the hospital for management of a prior E.coli UTI that was resistant to the oral medication she was on, but sensitive to penicillin/ carbapenems and cephalosporins. Patient endorsed prior hx of TEN to penicillin, but has taken po Keflex several times without any problems. She is Day 2 on IV Rocephin without any adverse reactions. Urine culture is GNR, pending sensitivity She has no new complains Physical exam: VSS, Obese, not in distress. Chest is CTAB, she does have transmitted sounds, no crackles , no rhonchi. Abdomen is soft and not tender, no pedal edema Labs and Imaging reviewed: CBC/Chem at baseline, Urine culture with GNR A/P #Asymptomatic Recurrent E.Coli UTI. D/C gentamicin. Continue Rocephin. Follow urine final sensitivity of culture sent 05/10/17 #Adenopathy: Heme/Onc eval noted, blood work sent to [facility], patient was informed of plan #Bronchitis: Supportive care, no sputum production, CXR normal. Other chronic medical conditions stable, rest of details as in the resident physicians documentation
[2017-05-12] MEDS ORDERED: Ibuprofen 400 MG TABLET PO ONE (14:16)
[2017-05-13] MEDS ORDERED: Ibuprofen 400 MG TABLET PO ONE (05:21)
[2017-05-13] MEDS: *HR* Enoxaparin 40 MG/0.4 ML SYRINGE SQ SCH (05:47)
[2017-05-13 06:23] LABS: Basophils % 0.8 %; Eosinophils % 0.3 %; Hematocrit 35.1 % (35.3-44.9); Immature Granulocytes % 0.3 % (0-4); Lymphocytes # 0.8 K/mcL (0.6-4.6); Lymphocytes % 19.7 %; Mean Corpuscular HGB Conc 31.3 g/dL (31.6-35.5); Mean Corpuscular Hemoglobin 28.5 pg (28.0-33.3); Mean Corpuscular Volume 90.9 fL (83.0-100.0); Mean Platelet Volume 9.5 fL (9.4-12.4); Monocytes # 0.6 K/mcL (0.0-1.3); Neutrophils # 2.4 K/mcL (1.6-8.9); Platelet Count 217 K/mcL (140-400); Red Blood Count 3.86 M/mcL (3.82-4.97); Red Cell Distribution Width 13.7 % (11.5-14.5); Segmented Neutrophils % 63.9 %
[2017-05-13 06:41] LABS: BUN/Creatinine Ratio 17 (6-26); Blood Urea Nitrogen 14 mg/dL (7-20); Calcium 8.6 mg/dL (8.6-10.8); Carbon Dioxide 22 mEq/L (19-29); Chloride 104 mEq/L (98-109); Glucose 105 mg/dL (70-99); Osmolality,Calculated 283 (280-300); Potassium 3.5 mEq/L (3.5-4.5); Sodium 136 mEq/L (136-145); eGFR For African Americans > 60 (> 60); eGFR For Non-African Americans > 60 (> 60)
[2017-05-13] MEDS ORDERED: 0.9 % Sodium Chloride 1,000 ML IVC ONE (07:52)
[2017-05-13] MEDS: Aspirin Enteric Coated 81 MG Tablet PO SCH (08:23)
[2017-05-13] MEDS: Metoprolol XL (24 HR) Succ 25 MG TAB.ER.24H PO SCH (08:24)
[2017-05-13] MEDS: Metoprolol XL (24 HR) Succ 50 MG TAB.ER.24H PO SCH (08:24)
--- NOTE | 2017-05-13 08:29 | Internal Med Progress Note ---
<Shannon Benz - Last Filed: 05/13/17 13:44> Date of Encounter: 05/13/17 Time of Encounter: 08:26 - Assessment and plan (1) Sepsis Current Visit: Yes Status: Acute Assessment and plan: Patient this morning met sepsis criteria. Fever 102.3 tachycardic, WBC 3.8 concerning for C.diff due to new onset diarrhea upon admission. Patient reports that she is uncontrollable diarrhea. -start Flagyl -C.Diff culture ordered -C.Diff precautions taken -bolus IV fluids and IV fluid maintenance (2) Diarrhea Current Visit: Yes Status: Acute Assessment and plan: Patient reports diarrhea that began when she was admitted. She states she has always had loose bowel movements but it has gotten worse. She states when she coughs it comes out which can hold it. Her nurse reports that is very liquidy. Concerning for C. Diff -IV Flagyl started -C.diff orderd -precautions taken (3) Urinary tract infection Current Visit: Yes Status: Acute Assessment and plan: Patient has a history of recurrent urinary tract infections it was resistant to the oral medication that she was on She has allergies to PCN / Chephalosporins. Patient reported history of TEN to penicillin, but is taking Keflex several times without problems. She denies dysuria, urinary frequency, bladder fullness -2mg Rocephin Day 3 - will monitor closely -diphenhydramine as needed -urine culture- final GNR sensitive to Rocephin Qualifiers: Urinary tract infection type: site unspecified Hematuria presence: without hematuria Qualified Code(s): N39.0 - Urinary tract infection, site not specified (4) Lymphadenopathy Current Visit: Yes Status: Acute Assessment and plan: This is believed to be an infectious process versus malignancy CTA chest showed adenopathy with multiple mildly enlarged and multiple small lymph nodes. Considerations lymphoproliferative disorder and less likely early lymphoma. ESR 55, CRP 15 corrected ESR is 81 low Iron-17 -oncology will see her outpatient with Dr. Crespo 2 weeks after discharge for probable PET scan for further evaluation -Oncology following -peripheral blood flow ordered by oncology and sent to [facility] for analysis -iron supplementation (5) Acute bronchiolitis Current Visit: Yes Status: Acute Assessment and plan: patient admits to cough but no shortness of breath -guifenesin added -continue Tessilon pearls -Duonebs prn -continue supportive care (6) Primary biliary cirrhosis Current Visit: Yes Status: Chronic Assessment and plan: -stable -continue her medications, ursodiol (7) Hypertension, essential Current Visit: Yes Status: Acute Assessment and plan: stable -continue her medications and metoprolol (8) Hypothyroid Current Visit: Yes Status: Chronic Assessment and plan: -continue her medications of levothyroxine (9) DVT prophylaxis Current Visit: Yes Status: Acute Assessment and plan: Lovenox SQ - Subjective Interval history: Patient is lying in bed comfortably because complaint is diarrhea that expels from her every time she coughs she complains of cough and the tessilon pearls are not helping she also complains of chills and fever she denies dysuria, bladder fullness, hematuria her nurse is going to do a stool test - Constitutional Vitals: Temp Pulse Resp BP Pulse Ox 98.6 F 101 16 100/67 95 05/13/17 08:07 05/13/17 08:07 05/13/17 08:07 05/13/17 08:07 05/13/17 08:07 General appearance: Present: A&O X 3, no acute distress, answers questions appropriately Exam: Gen.: Vitals noted. No acute distress. AAOx3 HEENT: oropharynx clear, Normocephalic, atraumatic Neck: Supple. No adenopathy. Cardiac: RRR, no murmur, +S1/S2 Pulmonary: bilaterally wheezes equal chest expansion Abdomen: soft, minimal tender and right lower quadrant, Bowel sounds noted, no guarding MSK: ROM intact, no joint swelling noted Extremities: bilateral chronic tender calf, no cyanosis or clubbing Neuro: A&Ox3, moves all extremities Psych: Appropriate mood and behavior Internal Medicine: Result - Labs CBC & Chem 7: 05/13/17 05:22 05/13/17 05:22 Labs: Short CBC 05/13/17 Range/Units 05:22 WBC 3.8 L (4.3-11.1) K/mcL Hgb 11.0 L (11.5-15.4) g/dL Hct 35.1 L (35.3-44.9) % Plt Count 217 (140-400) K/mcL Neutrophils # 2.4 (1.6-8.9) K/mcL BMP 05/13/17 05:22 Sodium 136 Potassium 3.5 Chloride 104 Carbon Dioxide 22 BUN 14 Creatinine 0.84 Glucose 105 H Calcium 8.6 - Impressions Impressions Chest X-Ray 05/12/17 15:58 IMPRESSION: Clear lungs. D/ / Jose D Martinez MD / Jose D Martinez MD Interpreting Provider: Jose D Martinez MD Consult Discharge Plan - Plan Referrals: Florinda Dickens MD [Primary Care Provider] - <Lefty Ramirez T - Last Filed: 05/13/17 14:24> Date of Encounter: 05/13/17 - Constitutional Vitals: Temp Pulse Resp BP Pulse Ox 98.3 F 90 14 127/70 93 05/13/17 12:00 05/13/17 12:00 05/13/17 12:00 05/13/17 12:00 05/13/17 12:00 Internal Medicine: Result - Labs CBC & Chem 7: 05/13/17 05:22 05/13/17 05:22 Labs: Short CBC 05/13/17 Range/Units 05:22 WBC 3.8 L (4.3-11.1) K/mcL Hgb 11.0 L (11.5-15.4) g/dL Hct 35.1 L (35.3-44.9) % Plt Count 217 (140-400) K/mcL Neutrophils # 2.4 (1.6-8.9) K/mcL BMP 05/13/17 05:22 Sodium 136 Potassium 3.5 Chloride 104 Carbon Dioxide 22 BUN 14 Creatinine 0.84 Glucose 105 H Calcium 8.6 - Impressions Impressions Chest X-Ray 05/12/17 15:58 IMPRESSION: Clear lungs. D/ / Jose D Martinez MD / Jose D Martinez MD Interpreting Provider: Jose D Martinez MD Retroperitoneum Ultrasound 05/13/17 10:30 IMPRESSION: Normal sonographic appearance of the kidneys and urinary bladder. D/ / Perry Lee MD / Perry Lee MD Interpreting Provider: Perry Lee MD - Attending Attestation independently saw and examined this patient on 05/13/2017, I have reviewed his chart as well. Diagnoses and management plan was discussed with the patient, and the resident physician. 76 F with PMH of Biliary Cirrhosis, HTN, Hypothyroidism, Recurrent UTIS She was admitted to the hospital for management of a prior E.coli UTI that was resistant to the oral medication she was on, but sensitive to penicillin/ carbapenems and cephalosporins. Patient endorsed prior hx of TEN to penicillin, but has taken po Keflex several times without any problems. She is Day 3 on IV Rocephin without any adverse reactions. Urine culture is pansensitive E.coli Patient developed fever, tachycardia and diarrhea in the past 24 hours and is also complaining of malaise. She also has bowel incontinence with cough. She denies flank pain or fullness, her cough is improved. Physical exam: T max,Obese, not in distress. Chest is CTAB, she does have transmitted sounds, no crackles , no rhonchi. Abdomen is soft and not tender, no pedal edema Labs and Imaging reviewed: Leukopenia WBC 3.8, HB stable, Chem WNL, iron level is low. CXRi -2 views s normal, Stool work up is pending. Renal USS is normal. A/P #Sepsis: Patient developed fever in the past 12 hrs with leukopenia, tachycardia source of sepsis is likely GI as she has multiple episodes of diarrhea. Suspect C.Diff. Follow stool panel. Abdominal exam is non-acute, we may obtain a repeat abdomen and pelvis CT if patient's clinical status worsens. IVF hydration and Add IV Flagyl, and antiemetics #suspected Cdiff colitis. #Asymptomatic Recurrent E.Coli UTI. Continue Rocephin, increase to 2g. Urine culture shows E.coli which is pansensitive. Renal USS shows normal kidneys with ny pyelonephritis or starla-renal abscess. #Adenopathy: Heme/Onc eval noted, blood work sent to [facility], patient was informed of plan #Bronchitis: Supportive care, no sputum production, CXR normal. Rest of details as in the resident physicians documentation
[2017-05-13] MEDS ORDERED: GuaiFENesin/Codeine Oral Soln 5 ML UDC PO PRN (08:54)
[2017-05-13] MEDS ORDERED: Potassium Chloride Elixir 20 MEQ/15 ML UDC PO ONE (08:59)
[2017-05-13] MEDS ORDERED: metroNIDAZOLE 500 MG TABLET PO SCH (11:45)
[2017-05-13] MEDS: MetroNIDAZOLE 500 MG/100 ML 500 MG/100 ML BAG IVPB SCH ×2 (17:06→20:03)
[2017-05-13] MEDS: 0.9 % Sodium Chloride 1,000 ML IVC SCH (23:53)
[2017-05-14] MEDS: Acetaminophen 325 MG TABLET PO PRN ×2 (00:57→21:11)
[2017-05-14] MEDS: MetroNIDAZOLE 500 MG/100 ML 500 MG/100 ML BAG IVPB SCH ×4 (00:57→23:54)
[2017-05-14 04:09] LABS: Basophils % 0.8 %; Eosinophils % 0.3 %; Hematocrit 33.9 % (35.3-44.9); Hemoglobin 10.8 g/dL (11.5-15.4); Immature Granulocytes % 0.6 % (0-4); Lymphocytes # 0.8 K/mcL (0.6-4.6); Mean Corpuscular HGB Conc 31.9 g/dL (31.6-35.5); Mean Corpuscular Hemoglobin 28.4 pg (28.0-33.3); Mean Corpuscular Volume 89.2 fL (83.0-100.0); Mean Platelet Volume 9.6 fL (9.4-12.4); Monocytes # 0.3 K/mcL (0.0-1.3); Monocytes % 8.6 %; Neutrophils # 2.4 K/mcL (1.6-8.9); Platelet Count 215 K/mcL (140-400); Red Cell Distribution Width 13.8 % (11.5-14.5); Segmented Neutrophils % 67.7 %
[2017-05-14 04:40] LABS: BUN/Creatinine Ratio 12 (6-26); Blood Urea Nitrogen 10 mg/dL (7-20); Calcium 8.2 mg/dL (8.6-10.8); Carbon Dioxide 23 mEq/L (19-29); Chloride 105 mEq/L (98-109); Glucose 111 mg/dL (70-99); Magnesium 1.5 mg/dL (1.6-2.6); Osmolality,Calculated 280 (280-300); Potassium 3.3 mEq/L (3.5-4.5); Sodium 135 mEq/L (136-145); eGFR For African Americans > 60 (> 60); eGFR For Non-African Americans > 60 (> 60)
[2017-05-14] MEDS: *HR* Enoxaparin 40 MG/0.4 ML SYRINGE SQ SCH (05:47)
[2017-05-14] MEDS ORDERED: Magnesium Sulfate 2 GM in D5% in Water 100 ML IVPB ONE ×2 (07:25→08:30)
[2017-05-14] MEDS ORDERED: Potassium Chloride Elixir 20 MEQ/15 ML UDC PO ONE (07:25)
[2017-05-14] MEDS: 0.9 % Sodium Chloride 1,000 ML IVC SCH ×3 (07:28→18:27)
[2017-05-14] MEDS: Metoprolol XL (24 HR) Succ 50 MG TAB.ER.24H PO SCH (08:37)
[2017-05-14] MEDS: Aspirin Enteric Coated 81 MG Tablet PO SCH (08:37)
[2017-05-14] MEDS: Metoprolol XL (24 HR) Succ 25 MG TAB.ER.24H PO SCH (08:37)
--- NOTE | 2017-05-14 09:28 | Internal Med Progress Note ---
Date of Encounter: 05/14/17 Time of Encounter: 09:26 - Assessment and plan (1) Sepsis Current Visit: Yes Status: Acute Assessment and plan: Patient this morning met sepsis criteria. Fever 102.3 tachycardic, WBC 3.8 Blood culture is pending Urine culture with E.coli, being treated. Stool panel pending C.diff negative T max 102.7. BP is stable. Last fever at 00.30 this a.m Await blood culture Send influenza Ag Continue IVF, patient is having adequate urine output Continue current management Qualifiers: Sepsis type: sepsis due to unspecified organism Qualified Code(s): A41.9 - Sepsis, unspecified organism (2) Urinary tract infection Current Visit: Yes Status: Acute Assessment and plan: E. Coli UTI, sensitive to cephalosporins, -2mg Rocephin Day 4, continue same - will monitor closely -diphenhydramine as needed Qualifiers: Urinary tract infection type: site unspecified Hematuria presence: without hematuria Qualified Code(s): N39.0 - Urinary tract infection, site not specified (3) Lymphadenopathy Current Visit: Yes Status: Acute Assessment and plan: This is believed to be an infectious process versus malignancy CT abdomen and pelvis showed adenopathy with multiple mildly enlarged and multiple small lymph nodes. Considerations lymphoproliferative disorder and less likely early lymphoma. ESR 55, CRP 15 low Iron-17 -oncology will see her outpatient with Dr. Crespo 2 weeks after discharge for probable PET scan for further evaluation -Oncology following -peripheral blood flow ordered by oncology and sent to [facility] for analysis -iron supplementation (4) Hypertension, essential Current Visit: Yes Status: Chronic Assessment and plan: stable, controlled on current meds, continue same -continue her medications and metoprolol (5) Hypothyroid Current Visit: Yes Status: Chronic Assessment and plan: Continue synthroid Qualifiers: Hypothyroidism type: unspecified Qualified Code(s): E03.9 - Hypothyroidism , unspecified (6) Primary biliary cirrhosis Current Visit: Yes Status: Chronic Assessment and plan: -stable -continue her medications, ursodiol (7) Acute bronchiolitis Current Visit: Yes Status: Acute Assessment and plan: patient admits to cough but no shortness of breath -guifenesin added -continue Tessilon pearls -Duonebs prn -continue supportive care -Hx of respiratory symptoms in her recent contacts, check Infleunza Ag Qualifiers: Bronchiolitis organism: unspecified organism Qualified Code(s): J21.9 - Acute bronchiolitis, unspecified (8) Anemia Current Visit: Yes Status: Chronic Qualifiers: Anemia type: iron deficiency Iron deficiency anemia type: unspecified iron deficiency Qualified Code(s): D50.9 - Iron deficiency anemia, unspecified (9) Diarrhea Current Visit: Yes Status: Acute Assessment and plan: Patient reports diarrhea that began when she was admitted. She states she has always had loose bowel movements but it has gotten worse. She states when she coughs it comes out which can hold it. C. diff negative Still having diarrhea Empiric treatment with flagyl, continue same Send GI panel with stool today Continue to replace potassium, add lactobacillus If GI panel is negative, she may be having antibiotic related diarrhea Qualifiers: Diarrhea type: presumed infectious Qualified Code(s): A09 - Infectious gastroenteritis and colitis, unspecified (10) Hypokalemia Current Visit: Yes Status: Acute Assessment and plan: Replaced, due to GI loss from diarrhea, continue to monitor - Subjective Interval history: 76 F with PMH of Biliary Cirrhosis, HTN, Hypothyroidism, Recurrent UTIS She was admitted to the hospital for management of a prior E.coli UTI that was resistant to the oral medication she was on, but sensitive to penicillin/ carbapenems and cephalosporins. Patient endorsed prior hx of TEN to penicillin, but has taken po Keflex several times without any problems. She is Day 4 on IV Rocephin without any adverse reactions. Urine culture is pansensitive E.coli She developed sepsis in the hospital with diarrhea, CXR/C.diff is negative, Renal USS did not show pyeonephritis or abscess She was started on Flagyl empirically. She is seen and evaluated at bedside this morning She continues to have diarrhea She reports her and all that went on tour with her in the past week have also developed respiratory symptoms. HEr CXR remains clear She denies abdominal pain - Constitutional Vitals: Temp Pulse Resp BP Pulse Ox 98.4 F 85 18 106/71 95 05/14/17 06:30 05/14/17 06:30 05/14/17 06:30 05/14/17 06:30 05/14/17 06:30 General appearance: Present: A&O X 3, morbidly obese, pleasant, no acute distress, answers questions appropriately - Head Head exam: Present: atraumatic, normocephalic - Eye Eye exam: Present: PERRL, conjuntiva pink, sclera anicteric Pupils: Present: PERRL - Neck Neck exam general surgery: Present: supple, trachea midline. Absent: lymphadenopathy - Respiratory Respiratory exam: Present: CTAB. Absent: accessory muscle use, rales, rhonchi, wheezes - Cardiovascular Cardiovascular exam: Present: RRR, +S1, +S2. Absent: diastolic murmur, gallop, rubs, systolic murmur - GI/Abdominal GI/Abdominal exam: Present: normal bowel sounds, soft, no peritoneal signs. Absent: distended, tenderness - Extremities Exam Extremities exam: Present: warm, radial pulses palpable and symmetrical. Absent : calf tenderness, cyanotic, pedal edema - Neurological Exam Neurological exam: Present: alert, CN II-XII intact, oriented X3, no focal deficits. Absent: pronater drift, facial droop, speech deficit - Skin Skin exam: Present: dry, intact Internal Medicine: Result - Labs CBC & Chem 7: 05/14/17 03:11 05/14/17 03:11 Labs: Short CBC 05/14/17 Range/Units 03:11 WBC 3.6 L (4.3-11.1) K/mcL Hgb 10.8 L (11.5-15.4) g/dL Hct 33.9 L (35.3-44.9) % Plt Count 215 (140-400) K/mcL Neutrophils # 2.4 (1.6-8.9) K/mcL BMP 05/14/17 03:11 Sodium 135 L Potassium 3.3 L Chloride 105 Carbon Dioxide 23 BUN 10 Creatinine 0.82 Glucose 111 H Calcium 8.2 L - Impressions Impressions Retroperitoneum Ultrasound 05/13/17 10:30 IMPRESSION: Normal sonographic appearance of the kidneys and urinary bladder. D/ / Perry Lee MD / Perry Lee MD Interpreting Provider: Perry Lee MD Consult Discharge Plan - Plan Referrals: Florinda Dickens MD [Primary Care Provider] -
[2017-05-14] MEDS: Lactobacillus 1 EACH CAP.SPRINK PO SCH (12:03)
[2017-05-15 00:02] LABS: Adenovirus F 40/41 PCR Not detected (Not detect); Astrovirus PCR Not detected (Not detect); C.difficile Toxin A/B by PCR Not detected (Not detect); Campylobacter by PCR Not detected (Not detect); Cryptosporidium by PCR Not detected (Not detect); Cyclospora cayetanensis PCR Not detected (Not detect); Entamoeba histolytica PCR Not detected (Not detect); Enteroaggregative E.coli(EAEC) Not detected (Not detect); Enteropathogenic E.coli(EPEC) Not detected (Not detect); Enterotoxigenic E.coli (ETEC) Not detected (Not detect); Giardia lamblia PCR Not detected (Not detect); Norovirus GI/GII PCR Not detected (Not detect); Plesiomonas shigelloides PCR Not detected (Not detect); Rotavirus A PCR Not detected (Not detect); Salmonella PCR Not detected (Not detect); Sapovirus PCR Not detected (Not detect); Shig/EnteroinvasiveE coli EIEC Not detected (Not detect); Shigalike tox-prod E coli STEC Not detected (Not detect); Vibrio PCR Not detected (Not detect); Vibrio cholerae PCR Not detected (Not detect); Yersinia enterocolitica PCR Not detected (Not detect)
[2017-05-15 01:22] LABS: Alpha 2 Globulin (PEP) 1.02 g/dL (0.48-1.05); Beta Globulin (PEP) 0.91 g/dL (0.48-1.10)
[2017-05-15] MEDS: 0.9 % Sodium Chloride 1,000 ML IVC SCH (04:32)
[2017-05-15 04:36] LABS: Hemoglobin 9.9 g/dL (11.5-15.4)
[2017-05-15 04:38] LABS: Hematocrit 31.4 % (35.3-44.9); Mean Corpuscular HGB Conc 31.5 g/dL (31.6-35.5); Mean Corpuscular Hemoglobin 28.8 pg (28.0-33.3); Mean Corpuscular Volume 91.3 fL (83.0-100.0); Mean Platelet Volume 9.4 fL (9.4-12.4); Monocytes # 0.3 K/mcL (0.0-1.3); Platelet Count 158 K/mcL (140-400); Red Blood Count 3.44 M/mcL (3.82-4.97); Red Cell Distribution Width 13.9 % (11.5-14.5)
[2017-05-15 04:53] LABS: Alanine Aminotransferase 14 Units/L (0-55); Albumin 2.6 g/dL (3.5-5.0); Albumin/Globulin Ratio 0.8 (1.1-2.2); Alkaline Phosphatase 102 Units/L (38-126); Aspartate Amino Transferase 29 Units/L (5-34); BUN/Creatinine Ratio 8 (6-26); Bilirubin,Total 0.3 mg/dL (0.2-1.2); Blood Urea Nitrogen 6 mg/dL (7-20); Calcium 7.8 mg/dL (8.6-10.8); Carbon Dioxide 22 mEq/L (19-29); Chloride 109 mEq/L (98-109); Globulin 3.1 g/dL (2.4-3.5); Glucose 96 mg/dL (70-99); Magnesium 1.9 mg/dL (1.6-2.6); Osmolality,Calculated 287 (280-300); Potassium 3.2 mEq/L (3.5-4.5); Sodium 140 mEq/L (136-145); Total Protein 5.7 g/dL (6.0-8.3); eGFR For African Americans > 60 (> 60); eGFR For Non-African Americans > 60 (> 60)
[2017-05-15 05:31] LABS: Eosinophils # 0.3 K/mcL (0.0-0.6); Lymphocytes # 0.6 K/mcL (0.6-4.6); Platelet Estimate Normal (Normal)
[2017-05-15] MEDS: *HR* Enoxaparin 40 MG/0.4 ML SYRINGE SQ SCH (05:49)
[2017-05-15] MEDS: MetroNIDAZOLE 500 MG/100 ML 500 MG/100 ML BAG IVPB SCH (08:28)
[2017-05-15] MEDS: Aspirin Enteric Coated 81 MG Tablet PO SCH (08:30)
[2017-05-15] MEDS: Metoprolol XL (24 HR) Succ 50 MG TAB.ER.24H PO SCH (08:30)
[2017-05-15] MEDS: Lactobacillus 1 EACH CAP.SPRINK PO SCH (08:30)
[2017-05-15] MEDS: Metoprolol XL (24 HR) Succ 25 MG TAB.ER.24H PO SCH (08:30)
[2017-05-15] MEDS ORDERED: Magnesium Sulfate 2 GM in D5% in Water 100 ML IVPB ONE (08:57)
--- NOTE | 2017-05-15 10:32 | Internal Med Progress Note ---
Date of Encounter: 05/15/17 Time of Encounter: 10:32 - Assessment and plan (1) Sepsis Current Visit: Yes Status: Acute Assessment and plan: Sepsis has resolved as patient has been afebrile >48hrs Suspected source was her UTI Urine culture with E.coli, being treated. Stool panel pending C.diff negative Blood culture negative Continue current anibiotics, send Flu swab, ordered D/C IVF Qualifiers: Sepsis type: sepsis due to unspecified organism Qualified Code(s): A41.9 - Sepsis, unspecified organism (2) Urinary tract infection Current Visit: Yes Status: Acute Assessment and plan: E. Coli UTI, sensitive to cephalosporins, -2mg Rocephin Day 5, continue same - will monitor closely -diphenhydramine as needed Qualifiers: Urinary tract infection type: site unspecified Hematuria presence: without hematuria Qualified Code(s): N39.0 - Urinary tract infection, site not specified (3) Lymphadenopathy Current Visit: Yes Status: Acute Assessment and plan: This is believed to be an infectious process versus malignancy CT abdomen and pelvis showed adenopathy with multiple mildly enlarged and multiple small lymph nodes. Considerations lymphoproliferative disorder and less likely early lymphoma. ESR 55, CRP 15 low Iron-17 -oncology will see her outpatient with Dr. Crespo 2 weeks after discharge for probable PET scan for further evaluation -Oncology following -peripheral blood flow ordered by oncology and sent to [facility] for analysis -iron supplementation Patient now has leucopenia, ensure Oncology follow up a.m (4) Hypertension, essential Current Visit: Yes Status: Chronic Assessment and plan: stable, controlled on current meds, continue same -continue her medications and metoprolol (5) Hypothyroid Current Visit: Yes Status: Chronic Assessment and plan: Continue synthroid Qualifiers: Hypothyroidism type: unspecified Qualified Code(s): E03.9 - Hypothyroidism , unspecified (6) Primary biliary cirrhosis Current Visit: Yes Status: Chronic Assessment and plan: -stable -continue her medications, ursodiol (7) Acute bronchiolitis Current Visit: Yes Status: Acute Assessment and plan: patient admits to cough but no shortness of breath -guifenesin added -continue Tessilon pearls -Duonebs prn -continue supportive care -Hx of respiratory symptoms in her recent contacts, [facility] Qualifiers: Bronchiolitis organism: unspecified organism Qualified Code(s): J21.9 - Acute bronchiolitis, unspecified (8) Anemia Current Visit: Yes Status: Chronic Qualifiers: Anemia type: iron deficiency Iron deficiency anemia type: unspecified iron deficiency Qualified Code(s): D50.9 - Iron deficiency anemia, unspecified (9) Diarrhea Current Visit: Yes Status: Acute Assessment and plan: Patient reports diarrhea that began when she was admitted. She states she has always had loose bowel movements but it has gotten worse. She states when she coughs it comes out which can hold it. C. diff negative Still having diarrhea Empiric treatment with flagyl, continue same, change to po GI panel negative Imodium prn Qualifiers: Diarrhea type: unspecified type Qualified Code(s): R19.7 - Diarrhea, unspecified (10) Hypokalemia Current Visit: Yes Status: Acute Assessment and plan: Replaced, due to GI loss from diarrhea, continue to monitor (11) Leukopenia Current Visit: Yes Status: Acute Assessment and plan: Initially thought to be due to sepsis Continues to worsen, but sepsis has resolved Ensure onology review a.m Qualifiers: Leukopenia type: unspecified Qualified Code(s): D72.819 - Decreased white blood cell count, unspecified - Subjective Interval history: 76 F with PMH of Biliary Cirrhosis, HTN, Hypothyroidism, Recurrent UTIS She was admitted to the hospital for management of a prior E.coli UTI that was resistant to the oral medication she was on, but sensitive to penicillin/ carbapenems and cephalosporins. Patient endorsed prior hx of TEN to penicillin, but has taken po Keflex several times without any problems. She is Day 5 on IV Rocephin without any adverse reactions. Urine culture is pansensitive E.coli She developed sepsis in the hospital with diarrhea, CXR/C.diff is negative, Renal USS did not show pyeonephritis or abscess She was started on Flagyl empirically. She is seen and evaluated at bedside this morning She continues to have diarrhea, but reports improvement C.diff is negative, GI panel is negative. - Constitutional Vitals: Temp Pulse Resp BP Pulse Ox 99.4 F 89 16 139/66 92 05/15/17 07:38 05/15/17 07:38 05/15/17 07:38 05/15/17 07:38 05/15/17 07:38 General appearance: Present: A&O X 3, morbidly obese, pleasant, no acute distress, answers questions appropriately - Head Head exam: Present: atraumatic, normocephalic - Eye Eye exam: Present: PERRL, conjuntiva pink, sclera anicteric Pupils: Present: PERRL - Neck Neck exam general surgery: Present: supple, trachea midline. Absent: lymphadenopathy - Respiratory Respiratory exam: Present: CTAB. Absent: accessory muscle use, rales, rhonchi, wheezes - Cardiovascular Cardiovascular exam: Present: RRR, +S1, +S2. Absent: diastolic murmur, gallop, rubs, systolic murmur - GI/Abdominal GI/Abdominal exam: Present: normal bowel sounds, soft, no peritoneal signs. Absent: distended, tenderness - Extremities Exam Extremities exam: Present: warm, radial pulses palpable and symmetrical. Absent : calf tenderness, cyanotic, pedal edema - Neurological Exam Neurological exam: Present: alert, CN II-XII intact, oriented X3, no focal deficits. Absent: pronater drift, facial droop, speech deficit - Skin Skin exam: Present: dry, intact Internal Medicine: Result - Labs CBC & Chem 7: 05/15/17 03:57 05/15/17 03:57 Labs: Short CBC 05/15/17 Range/Units 03:57 WBC 2.1 L (4.3-11.1) K/mcL Hgb 9.9 L (11.5-15.4) g/dL Hct 31.4 L (35.3-44.9) % Plt Count 158 (140-400) K/mcL Neutrophils # 1.0 L (1.6-8.9) K/mcL BMP 05/15/17 03:57 Sodium 140 Potassium 3.2 L Chloride 109 Carbon Dioxide 22 BUN 6 L Creatinine 0.80 Glucose 96 Calcium 7.8 L Liver Function 05/15/17 Range/Units 03:57 Total Bilirubin 0.3 (0.2-1.2) mg/dL AST 29 (5-34) Units/L ALT 14 (0-55) Units/L Alkaline Phosphatase 102 (38-126) Units/L Albumin 2.6 L (3.5-5.0) g/dL Consult Discharge Plan - Plan Referrals: Florinda Dickens MD [Primary Care Provider] -
[2017-05-15] MEDS: Cefdinir 300 MG CAPSULE PO SCH ×2 (11:21→20:24)
[2017-05-15] MEDS: metroNIDAZOLE 500 MG TABLET PO SCH ×2 (11:22→15:10)
[2017-05-15 14:37] LABS: Kappa Qnt Free Light Chains 3.53 mg/dL (0.33-1.94); Lambda Qnt Free Light Chains 2.83 mg/dL (0.57-2.63)
[2017-05-16 05:33] LABS: Basophils % 0.3 %; Eosinophils # 0.5 K/mcL (0.0-0.6); Eosinophils % 16.3 %; Hematocrit 30.8 % (35.3-44.9); Hemoglobin 9.9 g/dL (11.5-15.4); Lymphocytes # 0.9 K/mcL (0.6-4.6); Lymphocytes % 30.2 %; Mean Corpuscular HGB Conc 32.1 g/dL (31.6-35.5); Mean Corpuscular Hemoglobin 28.6 pg (28.0-33.3); Mean Platelet Volume 9.3 fL (9.4-12.4); Monocytes # 0.3 K/mcL (0.0-1.3); Monocytes % 8.7 %; Neutrophils # 1.3 K/mcL (1.6-8.9); Platelet Count 171 K/mcL (140-400); Red Blood Count 3.46 M/mcL (3.82-4.97); Red Cell Distribution Width 13.9 % (11.5-14.5); Segmented Neutrophils % 44.5 %
[2017-05-16 05:43] LABS: BUN/Creatinine Ratio 7 (6-26); Carbon Dioxide 22 mEq/L (19-29); Chloride 109 mEq/L (98-109); Glucose 92 mg/dL (70-99); Osmolality,Calculated 285 (280-300); Potassium 3.5 mEq/L (3.5-4.5); Sodium 139 mEq/L (136-145); eGFR For African Americans > 60 (> 60); eGFR For Non-African Americans > 60 (> 60)
[2017-05-16 05:46] LABS: Blood Urea Nitrogen 5 mg/dL (7-20)
[2017-05-16] MEDS: *HR* Enoxaparin 40 MG/0.4 ML SYRINGE SQ SCH (05:46)
[2017-05-16 05:55] LABS: Platelet Estimate Normal (Normal)
[2017-05-16] MEDS: Metoprolol XL (24 HR) Succ 50 MG TAB.ER.24H PO SCH (08:16)
[2017-05-16] MEDS: Aspirin Enteric Coated 81 MG Tablet PO SCH (08:16)
[2017-05-16] MEDS: Lactobacillus 1 EACH CAP.SPRINK PO SCH (08:16)
[2017-05-16] MEDS: Cefdinir 300 MG CAPSULE PO SCH (08:17)
[2017-05-16] MEDS: Metoprolol XL (24 HR) Succ 25 MG TAB.ER.24H PO SCH (08:17)
--- NOTE | 2017-05-16 08:31 | Discharge Summary ---
<Lefty Ramirez T - Last Filed: 05/16/17 12:49> Date of Encounter: 05/16/17 - Discharge Diagnosis (1) Sepsis Status: Acute Qualifiers: Sepsis type: sepsis due to unspecified organism Qualified Code(s): A41.9 - Sepsis, unspecified organism (2) Urinary tract infection Status: Acute Qualifiers: Urinary tract infection type: site unspecified Hematuria presence: without hematuria Qualified Code(s): N39.0 - Urinary tract infection, site not specified (3) Lymphadenopathy Status: Acute (4) Hypertension, essential Status: Chronic (5) Hypothyroid Status: Chronic Qualifiers: Hypothyroidism type: unspecified Qualified Code(s): E03.9 - Hypothyroidism , unspecified (6) Primary biliary cirrhosis Status: Chronic (7) Acute bronchiolitis Status: Acute Qualifiers: Bronchiolitis organism: unspecified organism Qualified Code(s): J21.9 - Acute bronchiolitis, unspecified (8) Anemia Status: Chronic Qualifiers: Anemia type: iron deficiency Iron deficiency anemia type: unspecified iron deficiency Qualified Code(s): D50.9 - Iron deficiency anemia, unspecified (9) Diarrhea Status: Acute Qualifiers: Diarrhea type: unspecified type Qualified Code(s): R19.7 - Diarrhea, unspecified (10) Hypokalemia Status: Acute (11) Leukopenia Status: Acute Qualifiers: Leukopenia type: unspecified Qualified Code(s): D72.819 - Decreased white blood cell count, unspecified - Discharge Medications Prescriptions: Cefdinir [Omnicef] 300 mg PO BID 4 Days #8 capsule Home Medications: Aspirin Enteric Coated [Aspirin EC] 81 mg PO DAILY 05/10/17 [History] Diclofenac Sodium [Voltaren] 2 gm TP BID 05/10/17 [History] Levothyroxine [Synthroid] 125 mcg PO 0630 05/10/17 [History] Metoprolol Succinate 25 mg PO DAILY 05/10/17 [History] Metoprolol Succinate 100 mg PO DAILY 05/10/17 [History] Pimecrolimus [Elidel] 1 appl TP BID PRN 05/10/17 [History] Ursodiol 1,800 mg PO HS 05/10/17 [History] Cefdinir [Omnicef] 300 mg PO BID 4 Days #8 capsule 05/16/17 [Rx] Allergies/Adverse Reactions: 3 Allergy/AdvReac Type Severity Reaction Status Date / Time azithromycin Allergy See Verified 05/10/17 20:01 [From Zithromax Z-Ray] Comments cefdinir Allergy See Verified 05/10/17 20:01 Comments metronidazole [From Flagyl] Allergy See Verified 05/10/17 20:01 Comments nitrofurantoin Allergy See Verified 05/10/17 20:01 [From Macrobid] Comments Penicillins Allergy See Verified 05/10/17 20:01 Comments sulfamethoxazole Allergy See Verified 05/10/17 20:01 [From Bactrim] Comments Date of admission: 05/11/17 01:18 Primary care physician: Florinda Dickens Consults: 05/11/17 09:37 Consult to Physical Therapy [CONS] Routine Comment: Evaluate, develop and implement POC Reason for Consult: discharge planning OT [Consult to Occupational Therapy] [CONS] Routine Comment: Evaluate, develop and implement POC Reason for Consult: discharge planning 05/11/17 11:48 Consult to Oncology Hematology [CONS] Routine Consulting Provider: Dennis Eraoz Jr Reason for Consult: CT chest: adenopathy of multiple large lymph nodes concerning for lymphoma Call Completed: Yes - Patient Status Disposition: Home, Self-Care Condition: Good - Discharge Instructions Follow Up With: Florinda Dickens MD [Primary Care Provider] - Gloria Crespo MD [Partnered Physician] - Additional Instructions: Finished the antibiotic to completion follow-up with Dr. Crespo follow-up with your PCP in about a week return to the hospital should you develop fever, chills, shortness of breath, abdominal pain, shortness of breath. Hospital course: Ms. Roberts is a 76 year old female - Time Spent with Patient Total time spent providing and/or coordinating discharge services: - Constitutional Vitals: Temp Pulse Resp BP Pulse Ox 98.0 F 88 14 117/70 93 05/16/17 12:20 05/16/17 12:20 05/16/17 12:20 05/16/17 12:20 05/16/17 12:20 - Attending Attestation I have independently seen and examined this patient on and discussed plan of care with the patient and the resident physician 76 F with PMH of HTN and PBC, admitted and managed for sepsis secondary to complicated UTI She is seen this morning, and complained of some leg swelling, she otherwise denies new complains Her sepsis has resolved with appropriate antibiotic therapy Hospital stay was complicated by incidental finding of suspected lymphoproliferative disorder due to lymphadenopathy discovered on Abdomen CT scan. She has been seen by Oncology and has had blood testing done, result is pending. She has been leukopenic gradually since admission. There is no etiology for this at this time, as patient's sepsis has been well treated She also developed antibiotic related diarrhea which has resolved with Imodium, Cdiff was negative, GI panel was negative Physical exam this morning is significant for trace ankle edema, chest is with few basilar rales. She is not hypoxic Lab and Imaging at baseline She is stable to be discharged home on oral antibiotics, Oncology eval should be pursued prior to discharge, patient may also be seen in Oncology office for further eval Plan of care discussed, verbalized understanding. Rest of details as in resident physician's documentation <Shannon Benz - Last Filed: 05/16/17 14:06> Date of Encounter: 05/16/17 Time of Encounter: 08:15 - Discharge Diagnosis (1) Sepsis Priority: Primary Status: Acute Qualifiers: Sepsis type: sepsis due to unspecified organism Qualified Code(s): A41.9 - Sepsis, unspecified organism (2) Diarrhea Priority: Secondary Status: Acute Qualifiers: Diarrhea type: unspecified type Qualified Code(s): R19.7 - Diarrhea, unspecified (3) Urinary tract infection Priority: Secondary Status: Acute Qualifiers: Urinary tract infection type: site unspecified Hematuria presence: without hematuria Qualified Code(s): N39.0 - Urinary tract infection, site not specified (4) Lymphadenopathy Priority: Secondary Status: Acute (5) Acute bronchiolitis Priority: Secondary Status: Acute Qualifiers: Bronchiolitis organism: unspecified organism Qualified Code(s): J21.9 - Acute bronchiolitis, unspecified (6) Primary biliary cirrhosis Priority: Secondary Status: Chronic (7) Hypertension, essential Priority: Secondary Status: Chronic (8) Hypothyroid Priority: Secondary Status: Chronic Qualifiers: Hypothyroidism type: unspecified Qualified Code(s): E03.9 - Hypothyroidism , unspecified (9) DVT prophylaxis Priority: Secondary Status: Acute Procedures/tests Complete & Pending: Procedures Performed prior 72 hours Category Date Time Status Retroperitoneal Ultrasound - Complete [US Exams 05/13/17 10:30 Completed retroperitoneal comp] [US] Routine Date of admission: 05/11/17 01:18 Primary care physician: Florinda Dickens Consults: 05/11/17 09:37 Consult to Physical Therapy [CONS] Routine Comment: Evaluate, develop and implement POC Reason for Consult: discharge planning OT [Consult to Occupational Therapy] [CONS] Routine Comment: Evaluate, develop and implement POC Reason for Consult: discharge planning 05/11/17 11:48 Consult to Oncology Hematology [CONS] Routine Consulting Provider: Dennis Erazo Jr Reason for Consult: CT chest: adenopathy of multiple large lymph nodes concerning for lymphoma Call Completed: Yes Discharging clinician: Lefty Ramirez - Patient Status Functional capacity at discharge: independent ambulation Overall status at discharge: patient is back to baseline - Diet and Activity Activity: resume usual activities as tolerated Diet: regular diet Hospital course: Ms. Roberts is a 76 year old female with known PMH of HTN, HLD, Hypothyroidism , Primary Biliary cirrhosis , with recurrent UTI history pt was recently diagnosed with UTI on 04/27/17 which was growing E. Coli, and pt was placed on Ciprofloxacin. Apprently her E. Coli was fluroquinolone resistant and she is allergic to lot of abx. So her PCP called her to get admitted in the hospital for IV abx and further care. Pt went to [place] a couple of days ago, since then she has been having cough with yellowsih expectoration and mild ZAMORA / SOB. She denied any CP. No fever / chills. However she does c/o dysuria and Rt flank pain. She had further work up done in the ER, her CT of abd / pelvis showed mediastinal, precardial, and paraphrenic lymphadenopathy., no pyelonephritis. She has allergies to PCN / Chephalosporins. Patient reported history of TEN to penicillin, but is taking Keflex several times without problems. She was then admitted in started on Rocephin and Benadryl. Urine culture showed GNR E. coli sensitive to the Rocephin. Oncology was consulted due to lymphadenopathy and they have set up an appointment to follow up with the outpatient and discuss with her the possibilities of the lymphadenopathy. The patient also continued of a cough and was treated conservatively bronchiolitis with Tessilon pearls, cough syrup, douoneb as needed. The patient and developing sepsis with UTI as the etiology. C.Diff was a concern due to frequent diarrhea and Flagyl was started. After c.diff culture was negative the patient was given Imodium which resolved the diarrhea. Influenza was negative and culture negative. The patient continued to clinically improve. She was a febrile and denied shortness of breath, dysuria, bladder fullness, fever, chills, nausea, vomiting. She was found to have leukopenia and oncology was consulted to see the patient prior to her discharge. The patient continued to clinically improve and admitted that she felt that she was ready for discharge. The patient was instructed to finish her oral antibiotics to completion and to follow-up with Dr. Crespo outpatient. She is also to follow with her PCP in about a week. She was interested to return to the hospital should she develop fever, chills, abdominal pain. She stated a clear understanding treatment plan. All Questions were answered. - Time Spent with Patient Total time spent providing and/or coordinating discharge services: - Constitutional Vitals: Temp Pulse Resp BP Pulse Ox 98.2 F 81 16 118/75 91 05/16/17 07:41 05/16/17 07:41 05/16/17 07:41 05/16/17 07:41 05/16/17 07:41 General appearance: Present: A&O X 3, morbidly obese, pleasant, no acute distress, answers questions appropriately Exam: Gen.: Vitals noted. No acute distress. AAOx3 HEENT: oropharynx clear, Normocephalic, atraumatic Cardiac: RRR, no murmur, +S1/S2 Pulmonary: +rales and rhonchi bilateral especially in bases, equal chest expansion Abdomen: soft, nontender, Bowel sounds noted, no guarding MSK: ROM intact, no joint swelling noted Extremities: + BLE edema, nontender calf, no cyanosis or clubbing Neuro: A&Ox3, moves all extremities, no focal deficits Psych: Appropriate mood and behavior
[2017-05-16] MEDS ORDERED: Furosemide 40 MG/4 ML VIAL IVP ONE (08:35)
[2017-05-16 08:47] LABS: IFE Reflexed NOT DONE
[2017-05-16 12:24] VITALS: BP 117/70
--- NOTE | 2017-05-16 15:16 | Event Note ---
Date of Encounter: 05/16/17 Time of Encounter: 02:00 Patient being discharged to follow up with Dr Crespo. Saw patient regarding low white cell count. on admission5,000, on 05/15/17 2.1 and today 2.9. Discussed with Dr Crespo. Will repeat CB as out patient. Patient was instructed to call office is develops fever on 100.5 or high an any symptoms of infection. She understands that she is at higher risk of infection when white count is down. Explained this could be associated with recent infections. Patient states understanding.
== END 2017-05-16 16:40 | disposition home or self-care (01) | DRG 872 ==
LOC: 3ANU 18:51 → EMEROO 18:51 → 3ANU 22:54
PROVIDERS: ADMIT Family Medicine; ATTEND Internal Medicine

== ENCOUNTER 2021-05-05 09:50 | Observation (INO) ==
[2021-05-05] MEDS ORDERED: 0.9 % Sodium Chloride 1,000 ML IVC ONE (10:15)
[2021-05-05 10:51] LABS: Basophils # 0.1 K/mcL (0.0-0.2); Basophils % 0.3 %; Eosinophils # 0.2 K/mcL (0.0-0.6); Eosinophils % 0.9 %; Hematocrit 35.7 % (35.3-44.9); Hemoglobin 11.5 g/dL (11.5-15.4); Immature Granulocytes % 0.5 % (0-4); Lymphocytes % 1.7 %; Mean Corpuscular HGB Conc 32.2 g/dL (31.6-35.5); Mean Corpuscular Hemoglobin 29.6 pg (28.0-33.3); Mean Platelet Volume 9.6 fL (9.4-12.4); Monocytes # 0.6 K/mcL (0.0-1.3); Neutrophils # 19.1 K/mcL (1.6-8.9); Platelet Count 338 K/mcL (140-400); Red Blood Count 3.88 M/mcL (3.82-4.97); Red Cell Distribution Width 13.9 % (11.5-14.5); Segmented Neutrophils % 93.6 %; White Blood Count 20.4 K/mcL (4.3-11.1)
[2021-05-05 11:02] LABS: Lymphocytes # 0.4 K/mcL (0.6-4.6)
[2021-05-05 11:30] LABS: Albumin 3.4 g/dL (3.5-5.7); Albumin/Globulin Ratio 1.2 (1.1-2.2); Bilirubin,Direct 0.1 mg/dL (0.0-0.2); Bilirubin,Indirect 0.4 mg/dL (0.0-1.0); Bilirubin,Total 0.5 mg/dL (0.3-1.0); Calcium 8.5 mg/dL (8.6-10.3); Globulin 2.9 g/dL (2.4-3.5); Potassium 3.5 mEq/L (3.5-5.1); Total Protein 6.3 g/dL (6.4-8.9)
[2021-05-05] MEDS ORDERED: Naloxone 0.4 MG/ML INJ IVP PRN (12:03)
[2021-05-05] MEDS ORDERED: Ringers Solution, Lactated 1,000 ML IVC SCH (12:15)
[2021-05-05 12:26] LABS: Amorphous Sediment,Urine Few per hpf (None-Few); Bilirubin,Urine Negative (Negative); Blood,Urine Negative (Negative); Clarity,Urine Clear (Clear); Color,Urine Yellow (Yellow); Glucose,Urine (UA) Normal (Normal); Hyaline Casts,Urine Few per lpf (None Seen); Ketones,Urine Negative (Negative); Leukocyte Esterase,Urine Trace (Negative); Mucus,Urine Few per lpf (None-Few); Nitrite,Urine Negative (Negative); Protein,Urine 50 mg/dL (Neg-Trace); Specific Gravity,Urine > 1.030 (1.010-1.025); Squamous Epithelial Cell,Urine Few per hpf (None-Few); Urobilinogen,Urine Normal (Normal)
[2021-05-05] MEDS: *HR* HYDROcodone/Acet 5/325 mg TABLET PO PRN (15:09)
[2021-05-05] MEDS: metroNIDAZOLE 500 MG TABLET PO SCH ×2 (15:10→19:48)
[2021-05-05] MEDS: Ondansetron 4 MG/2 ML VIAL IVP PRN (15:10)
[2021-05-05] MEDS ORDERED: Piperacillin/Tazobactam 3.375 GM in 0.9 % Sodium Chloride Mini Bag 100 ML IVPB SCH (16:00)
[2021-05-05] MEDS: Cefepime HCl 2,000 MG in 0.9 % Sodium Chloride Mini Bag 100 ML IVPB SCH (17:30)
[2021-05-05] MEDS: *HR* Heparin 5,000 UNIT/ML VIAL SQ SCH (17:33)
[2021-05-05] MEDS ORDERED: Cefepime HCl 2,000 MG in 0.9 % Sodium Chloride Mini Bag 100 ML IVPB SCH (18:00)
[2021-05-06] MEDS: *HR* HYDROcodone/Acet 5/325 mg TABLET PO PRN ×2 (00:28→07:30)
[2021-05-06 02:08] LABS: BUN/Creatinine Ratio 18 (6-26); Blood Urea Nitrogen 18 mg/dL (8-23); Calcium 7.8 mg/dL (8.6-10.3); Carbon Dioxide 21 mEq/L (23-29); Chloride 105 mEq/L (98-107); Glucose 95 mg/dL (70-105); Magnesium 1.5 mg/dL (1.6-2.6); Osmolality,Calculated 278 (280-300); Phosphorous 2.9 mg/dL (2.7-4.5); Potassium 3.4 mEq/L (3.5-5.1); Sodium 133 mEq/L (136-145); eGFR For African Americans > 60 (> 60); eGFR For Non-African Americans 54 (> 60)
[2021-05-06 02:13] LABS: Basophils % 0.5 %; Eosinophils # 0.6 K/mcL (0.0-0.6); Hematocrit 29.6 % (35.3-44.9); Immature Granulocytes % 0.4 % (0-4); Lymphocytes # 0.8 K/mcL (0.6-4.6); Lymphocytes % 9.9 %; Mean Corpuscular HGB Conc 33.1 g/dL (31.6-35.5); Mean Corpuscular Hemoglobin 30.5 pg (28.0-33.3); Mean Corpuscular Volume 92.2 fL (83.0-100.0); Mean Platelet Volume 9.6 fL (9.4-12.4); Monocytes # 0.5 K/mcL (0.0-1.3); Monocytes % 5.9 %; Platelet Count 240 K/mcL (140-400); Red Blood Count 3.21 M/mcL (3.82-4.97); Red Cell Distribution Width 13.9 % (11.5-14.5); Segmented Neutrophils % 76.3 %
[2021-05-06 02:14] LABS: Hemoglobin 9.8 g/dL (11.5-15.4); Neutrophils # 6.3 K/mcL (1.6-8.9); White Blood Count 8.3 K/mcL (4.3-11.1)
[2021-05-06 02:28] LABS: INR 1.3; Prothrombin Time 14.2 Seconds (9.4-12.1)
[2021-05-06 02:30] LABS: Activated Partial Thrombo Time 28.4 Seconds (26.0-36.0)
[2021-05-06] MEDS: Cefepime HCl 2,000 MG in 0.9 % Sodium Chloride Mini Bag 100 ML IVPB SCH ×2 (05:47→17:14)
[2021-05-06] MEDS: *HR* Heparin 5,000 UNIT/ML VIAL SQ SCH ×2 (05:48→17:15)
[2021-05-06] MEDS: metroNIDAZOLE 500 MG TABLET PO SCH ×3 (07:30→20:12)
[2021-05-06] MEDS: Ondansetron 4 MG/2 ML VIAL IVP PRN (16:18)
[2021-05-06] MEDS ORDERED: URSODIOL 500 MG PO SCH (21:00)
[2021-05-07 03:23] LABS: Hematocrit 29.8 % (35.3-44.9); Hemoglobin 9.8 g/dL (11.5-15.4); Mean Corpuscular HGB Conc 32.9 g/dL (31.6-35.5); Mean Corpuscular Hemoglobin 30.3 pg (28.0-33.3); Mean Corpuscular Volume 92.3 fL (83.0-100.0); Mean Platelet Volume 9.3 fL (9.4-12.4); Platelet Count 235 K/mcL (140-400); Red Blood Count 3.23 M/mcL (3.82-4.97); Red Cell Distribution Width 13.7 % (11.5-14.5); White Blood Count 5.1 K/mcL (4.3-11.1)
[2021-05-07 03:42] LABS: BUN/Creatinine Ratio 15 (6-26); Blood Urea Nitrogen 14 mg/dL (8-23); Calcium 8.1 mg/dL (8.6-10.3); Carbon Dioxide 25 mEq/L (23-29); Chloride 108 mEq/L (98-107); Glucose 96 mg/dL (70-105); Osmolality,Calculated 284 (280-300); Potassium 4.1 mEq/L (3.5-5.1); Sodium 137 mEq/L (136-145); eGFR For African Americans > 60 (> 60); eGFR For Non-African Americans 59 (> 60)
[2021-05-07] MEDS: *HR* Heparin 5,000 UNIT/ML VIAL SQ SCH (05:10)
[2021-05-07] MEDS: Cefepime HCl 2,000 MG in 0.9 % Sodium Chloride Mini Bag 100 ML IVPB SCH (05:10)
[2021-05-07] MEDS: metroNIDAZOLE 500 MG TABLET PO SCH (08:04)
[2021-05-07] MEDS ORDERED: Metoprolol XL (24 HR) Succ 25 MG TAB.ER.24H PO SCH (09:00)
[2021-05-07] MEDS ORDERED: Aspirin Enteric Coated 81 MG Tablet PO SCH (09:00)
[2021-05-07 10:26] VITALS: BP 129/69; PULSE 86; TEMP 97.9; O2SAT 94
[2021-05-07] MEDS ORDERED: Cefdinir 300 MG CAPSULE PO SCH (21:00)
== END 2021-05-07 14:12 | disposition home or self-care (01) ==
LOC: 2ANU 09:50 → EMEROOARM 09:50 → SUATTDRO 13:14 → 2ANU 14:36
PROVIDERS: ADMIT Internal Medicine; ATTEND Internal Medicine